=== PATIENT | female | born 1950 | race Caucasian/White ===

== ENCOUNTER 2024-02-28 10:52 | Emergency (ER) | payer MEDICARE, SELFPAY ==
[2024-02-28] VITALS (11 sets, daily range): BP systolic 144–182; BP diastolic 74–98; PULSE 69–76; RESP 12–20; TEMP 36.4; O2SAT 97–100
--- NOTE | ~2024-02-28 | XR_ITS ---
EXAMINATION: XR chest 2V Exam Date/Time: 02/28/2024 11:15 CDT HISTORY: chest pain X TODAY Comparison: None. RESULT: Lines, tubes, and devices: Cholecystectomy clips. Lungs and pleura: Clear. Cardiomediastinal silhouette: Unremarkable. Other: No acute osseous or upper abdominal finding. IMPRESSION: No acute cardiopulmonary process. Reviewed, dictated and finalized at location K.
--- NOTE | 2024-02-28 10:53 | ECG_ITS ---
SEE SCANNED COPY FOR CONFIRMED REPORT MTDD
[2024-02-28 11:19] LABS: Basophils Percent Auto 0.3 % (0.2-1.2); Eosinophils Absolute Auto 0.1 K/mm3 (0-0.3); Eosinophils Percent Auto 1.2 % (0-4.4); Hematocrit 44.5 % (37.0-47.0); Hemoglobin 14.4 g/dL (12.0-15.0); Immature Granulocyte Absolute 0.02 K/mm3 (0.00-0.031); Immature Granulocyte Percent A 0.3 % (0-0.5); Lymphocytes Absolute Auto 2.11 K/mm3 (0.9-3.2); Lymphocytes Percent Auto 32.6 % (18.3-44.2); Mean Corpuscular HGB Conc 32.4 g/dl (32-36); Mean Corpuscular Hemoglobin 29.5 pg (26-34); Mean Corpuscular Volume 91.2 fl (80-100); Mean Platelet Volume 9.5 fl (7.4-10.4); Monocytes Absolute Auto 0.6 K/mm3 (0.1-0.6); Monocytes Percent Auto 9.7 % (2.6-8.5); Neutrophils Absolute Auto 3.6 K/mm3 (1.3-6.7); Neutrophils Percent Auto 55.9 % (45.5-73.1); Platelet Count Result 234 k/mm3 (150-375); Red Blood Count 4.88 M/mm3 (4.2-5.4); Red Cell Distribution Width 14.4 % (11.5-14.5); White Blood Count 6.5 K/mm3 (4.5-10.0)
[2024-02-28 11:30] LABS: INR 0.9; Prothrombin Time 12.6 Seconds (11.1-14.7)
[2024-02-28 11:31] LABS: Partial Thromboplastin Time 28.6 Seconds (22.3-36.8)
[2024-02-28 11:32] LABS: Alanine Aminotransferase 24 U/L (6-35); Albumin Level 4.2 g/dL (3.5-5.1); Alkaline Phosphatase 80 U/L (38-126); Anion Gap 4 mmol/L (4-12); Aspartate Amino Transferase 35 U/L (14-36); Bilirubin,Total 0.5 mg/dL (0.2-1.3); Blood Urea Nitrogen 16 mg/dL (7-17); Calcium 9.6 mg/dL (8.4-10.2); Carbon Dioxide 31 mmol/L (22-30); Chloride 104 mmol/L (98-107); Estimated CRCL calculation 50 ml/min; Estimated Glomerular Filt Rate > 60; Glucose 81 mg/dL (65-110); Lipase 202 U/L (23-300); Sodium 139 mmol/L (137-145)
--- NOTE | 2024-02-28 11:37 | ED.CHESTPAIN ---
HPI - Chest Pain General Chief Complaint: Chest Pain Stated Complaint: chest pain Time Seen by Provider: 02/28/24 11:28 History of Present Illness HPI narrative: Patient is a 74-year-old female who presents ER with chest pain. Was located in epigastrium/lower chest and moved up into her neck and down her arm. Muscle approximately 10-15 minutes. Mild nausea. She did take some Tums. Symptoms have improved. No history of heart disease. No fevers or chills or sweats. Unsure about provoking or alleviating factors despite the medication she took. She was in the car when symptoms started. Currently driving to [facility]. No dyspnea. No hemoptysis. Fevers or chills or sweats. Related Data Allergies Allergy/AdvReac Type Severity Reaction Status Date / Time Penicillins Allergy Unknown Verified 02/28/24 10:53 Sulfa (Sulfonamide AdvReac Rash Verified 02/28/24 10:53 Antibiotics) Review of Systems Review of Systems: All systems reviewed & are unremarkable except as noted in HPI and below Constitutional: Constitutional: Reports no additional constitutional complaints ENT: Reports system reviewed and no additional complaints, except as documented Cardiovascular: Cardiovascular: Reports chest pain, Denies rapid heart rate, Reports radiating jaw, neck or arm pain and Denies slow heart rate Respiratory: Respiratory: Reports no additional respiratory complaints Gastrointestinal: Gastrointestinal: Reports no additional gastrointestinal complaints and Reports nausea Genitourinary: Genitourinary: Reports no additional female genitourinary complaints PMFSH Past Medical History Medical History (Updated 02/28/24 @ 14:35 by Jose Carlos Newby MD) GERD (gastroesophageal reflux disease) Surgical History Surgical History (Updated 02/28/24 @ 14:32 by Jose Carlos Newby MD) History of cholecystectomy Exam Narrative: GENERAL: Well-appearing, well-nourished, and in no acute distress. HEAD: Normocephalic, atraumatic. EYES: PERRL and EOMI. ENT: Mucous membranes moist. NECK: Supple. CHEST: Clear to auscultation. No respiratory distress. HEART: Regular rate and rhythm. Normal peripheral pulses. ABDOMEN: Soft, nontender, nondistended. EXTREMITIES: Normal range of motion. No edema. SKIN: Warm, dry, no rash. NEURO: Alert and oriented x3. PSYCH: Normal mood and affect Course Course Emergency Course: heart score 3. Troponin negative x2. No chest pain here. Normal EKG. Recommend follow-up with PCP. Gave strict return precautions. Vital Signs Vital signs: Vital Signs Temperature 97.5 F L 02/28/24 10:57 Pulse Rate 73 02/28/24 10:57 Respiratory Rate 20 02/28/24 10:57 Blood Pressure 182/79 H 02/28/24 10:57 Pulse Oximetry 100 02/28/24 10:57 Oxygen Delivery Room Air 02/28/24 10:57 Temperature 97.5 F L 02/28/24 10:57 Pulse Rate 75 02/28/24 12:01 Respiratory Rate 18 02/28/24 12:01 Blood Pressure 144/98 H 02/28/24 12:01 Pulse Oximetry 99 02/28/24 12:01 Oxygen Delivery Room Air 02/28/24 11:30 MDM - Chest Pain Lab Data 02/28/24 11:10 02/28/24 11:10 Labs: Lab Results 02/28/24 02/28/24 Range/Units 11:10 13:49 WBC 6.5 (4.5-10.0) K/mm3 RBC 4.88 (4.2-5.4) M/mm3 Hgb 14.4 (12.0-15.0) g/dL Hct 44.5 (37.0-47.0) % MCV 91.2 (80-100) fl MCH 29.5 (26-34) pg MCHC 32.4 (32-36) g/dl RDW 14.4 (11.5-14.5) % Plt Count 234 (150-375) k/mm3 MPV 9.5 (7.4-10.4) fl Immature Gran % (Auto) 0.3 (0-0.5) % Neut % (Auto) 55.9 (45.5-73.1) % Lymph % (Auto) 32.6 (18.3-44.2) % [place] % (Auto) 9.7 H (2.6-8.5) % Eos % (Auto) 1.2 (0-4.4) % Baso % (Auto) 0.3 (0.2-1.2) % Lymph # (Auto) 2.11 (0.9-3.2) K/mm3 [place] # (Auto) 0.6 (0.1-0.6) K/mm3 Eos # (Auto) 0.1 (0-0.3) K/mm3 Baso # (Auto) 0.0 (0.0-0.1) K/mm3 Abs Immat Gran (auto) 0.02 (0.00-0.031) K/mm3 Absolute Neuts (auto) 3.
[2024-02-28 11:44] LABS: Troponin I < 0.012 ng/mL (0.000-0.034)
[2024-02-28] MEDS: ASPIRIN 81 MG CHEWABLE TABLET 324 MG PO (12:03)
--- NOTE | 2024-02-28 12:03 | PC.NURSE ---
162mg of Aspirin administered per verbal order of Dr. Newby. Pt had taken Excedrin at home, TRAN[employer]ORTATION [employer]AD.
--- NOTE | 2024-02-28 13:58 | ECG_ITS ---
SEE SCANNED COPY FOR CONFIRMED REPORT MTDD
[2024-02-28 14:27] LABS: Troponin I < 0.012 ng/mL (0.000-0.034)
== END 2024-02-28 14:48 | disposition home or self-care (01) ==
PROVIDERS: Emergency Provider Emergency Medicine
DX: R07.9 Chest pain, unspecified (principal); K21.9 Gastro-esophageal reflux disease without esophagitis
CPT/HCPCS: 36415; 71046; 80053; 83690; 84484; 85025; 85610; 85730; 93005; 99284; A9270